=== PATIENT | female | born 1980 | race Caucasian/White ===

== ENCOUNTER 2024-02-18 10:26 | Outpatient (REF) | payer BC, SELFPAY ==
[2024-02-18 15:15] LABS: Influenza A PCR NEGATIVE (Negative); Influenza B PCR NEGATIVE (Negative); Resp Syncy Virus RNA Qual PCR NEGATIVE (Negative); SARS COV2 PCR INHOUSE POSITIVE (Negative)
== END 2024-02-18 10:27 | disposition home or self-care (01) ==
LOC: HO.LAB 10:26
PROVIDERS: Visit Provider Nurse Practitioner Family
DX: J06.9 Acute upper respiratory infection, unspecified (principal)
CPT/HCPCS: 0241U; 87880

== ENCOUNTER 2024-02-18 10:26 | Outpatient (AMB) | payer BC, SELFPAY ==
--- NOTE | 2024-02-18 10:51 | MHC.OFFWIV ---
Intake Vital Signs 02/18/24 10:55 Height 5 ft 2 in Weight 193 lb 2 oz BMI 35.3 BP 120/70 Blood Pressure Location Lt brachial Position Sitting Respiration 13 Pulse 122 H Pulse Source Pulse Oximeter Temp 99.4 F Temp Source Oral Pulse Oximetry (%) 99 Oxygen Delivery Method Room Air Intake Visit Reasons: sore throat and fever Intake Note: Patient complaining of sore throat and fever since yesterday. Integrity Specialist Required: No Allergies No Known Allergies Allergy (Verified 02/18/24 11:00) Medication List - Last Reconciled 02/18/24 by Christianne Fabian CNP No Known Home Meds Do you need a note to return to daycare/school/sports/work: Yes HPI HPI Comments History of Present Illness Details The patient is a 43-year-old female presenting with fever, sore throat, and cough. The onset of the sore throat symptoms was four days ago, initially noticed on a Sunday. Over the weekend, the patient developed a cough, presuming it to be viral in nature. A fever commenced today, with a recorded temperature of 101?F this morning and persisting through the day. The patient, a elementary school science teacher, expressed concern about potential exposure to streptococcal pharyngitis due to a confirmed case in a child at her school. Additional symptoms included body aches and yellow-colored sputum. The patient denied recent viral testing, although she did not receive a flu vaccination this season. She took NyQuil the previous night but has not used other medications like Tylenol or ibuprofen for symptom management. Results - Rapid strep test is negative Review of Systems Const Details: Denies chills, Denies fatigue, Reports body aches, Reports fever(s), Denies headache(s) and Denies weakness HPI Reports as per HPI Cardiac Denies chest pain, Denies claudication, Denies leg edema, Denies lightheadedness, Denies palpitations, Denies dyspnea, Denies dyspnea on exertion, Denies orthopnea and Denies other (Loss of consciousness) Resp Reports cough, Denies excessive phlegm production, Denies dyspnea, Denies dyspnea on exertion, Denies snoring and Denies wheezing Physical Exam Vital Signs: Last Vital Signs Temp 99.4 F 02/18/24 10:55 Pulse 122 H 02/18/24 10:55 Resp 13 02/18/24 10:55 BP 120/70 02/18/24 10:55 Pulse Ox 99 02/18/24 10:55 Oxygen Delivery Method Room Air 02/18/24 10:55 BMI result Body Mass Index 35.3 Const Other: General: comfortable and no acute distress Orientation/consciousness: patient oriented x3 HPI Head is normocephalic Bilateral ear canal and TM are normal Nasal turbinates are pink and moist Oropharynx with mild erythema exudates, no tonsillar edema Sinuses are nontender with palpation No auricular or cervical lymphadenopathy Chest Chest palpation & inspection: normal inspection of the chest Resp Auscultation: clear to auscultation bilaterally Cardiac Palpation: normal PMI Heart sounds: S1 normal heart sound present, S2 normal heart sound present, no gallops, no murmur, no rubs Results AMB Rapid Strep AMB Rapid Strep Negative Last Edit by Ana Burgess MA on 02/18/24 11:32 Results Reviewed Results Reviewed: Laboratory Last Values Strep Scn Rapid Clinic Negative 02/18/24 11:15 Assessment & Plan Assessment & Plan (1) Viral upper respiratory illness: Code(s): J06.9 - Acute upper respiratory infection, unspecified Plan: The patient is most likely experiencing a viral upper respiratory infection. A nasal swab was conducted to test for COVID-19, influenza, and RSV, with results pending. The rapid strep test returned negative. Symptomatic management includes increased fluid intake and rest. The patient is advised to use acetaminophen 650 mg every 8 hours for fever and discomfort. As an alternative for fever or pain, the patient may take ibuprofen 600 mg every 8 hours, alternating with acetaminophen as needed. The patient's elevated heart rate may be due to fever or potential dehydration. It is recommended to increase fluid consumption. The patient will be notified of test results and was provided with a note for work absence. Follow-up will be determined based on the lab outcomes and symptom progression. Patient was informed and verbally consented to the use of an ambient scribe for clinic note documentation during this visit. Orders: Orders SARS-CoV2/FLU/RSV Today J06.9 - Acute upper respiratory infection, unspecified AMB Rapid Strep Screen Today Z13.9 - Encounter for screening, unspecified Coding Level of Care Code New Pt Level 3 (77301) Diagnoses Viral upper respiratory illness J06.9
[2024-02-18 10:55] VITALS: BP 120/70; PULSE 122; RESP 13; TEMP 37.4; O2SAT 99; BMI 35.3
== END 2024-02-18 11:31 | disposition home or self-care (01) ==
PROVIDERS: Visit Provider Nurse Practitioner Family
DX: J06.9 Acute upper respiratory infection, unspecified (principal); Z13.9 Encounter for screening, unspecified